=== PATIENT | female | born 1975 | race Caucasian/White ===

== ENCOUNTER 2016-08-01 10:41 | Outpatient (CLI) | payer OTHER ==
[~2016-08-01] VITALS: Ht 157.5 cm; Wt 75.9 kg
[~2016-08-01 10:41] MED LIST: NITR100C56 PO
[2016-08-01 11:03] VITALS: BP 123/74
== END 2016-08-01 12:52 | disposition home or self-care (01) ==
LOC: LDOP 10:41
PROVIDERS: ATTEND Obstetrics & Gynecology Maternal & Fetal Medicine
DX: O34.33 Maternal care for cervical incompetence, third trimester (principal); Z3A.37 37 weeks gestation of pregnancy
CPT/HCPCS: 59025; 99211; G0463

== ENCOUNTER → 2016-09-05 | Outpatient (CLI) | payer OTHER ==
[~2016-09-05] MED LIST changes: +DOCU-30 PO; +IBUP-1222 PO; +OXYC-302 PO
== END | disposition home or self-care (01) ==
LOC: RAD 11:20
PROVIDERS: ATTEND Family Medicine
DX: D16.7 Benign neoplasm of ribs, sternum and clavicle (principal)
CPT/HCPCS: 71111